=== PATIENT | female | born 1975 | race American Indian/Alaskan Native ===

== ENCOUNTER 2017-03-13 23:01 | Emergency (ER) | payer OTHER ==
--- NOTE | 2017-03-14 00:53 | C.PDOC ---
History Of Present Illness 41 y/o female comes in for detox for heroin. Patient notes she smokes heroin daily. Patient was a outpatient at [facility] and was told to come to [facility]. Denies suicidal ideation, homicidal ideation, or somatic complaints. Time Seen by Provider: 03/14/17 00:31 Chief Complaint (Nursing): Psychiatric Evaluation History Per: Patient History/Exam Limitations: no limitations Onset/Duration Of Symptoms: Days Current Symptoms Are (Timing): Still Present Suicide/Self Injury Attempted (Context): None Modifying Factor(s): Other (Heroin) Severity: Mild Associated Symptoms: denies: Suicidal Thoughts, Suicidal Plan Recent travel outside of the [place]: No Additional History Per: Patient Past Medical History Reviewed: Historical Data, Nursing Documentation, Vital Signs Vital Signs: Last Vital Signs Temp 98.2 F 03/13/17 23:27 Pulse 102 H 03/13/17 23:27 Resp 16 03/13/17 23:27 BP 124/82 03/13/17 23:27 Pulse Ox 99 03/14/17 00:56 - Medical History PMH: Anxiety, Asthma, Bipolar Disorder, Depression, Schizophrenia Family History: States: Unknown Family Hx - Social History Hx Alcohol Use: No Hx Substance Use: Yes - Immunization History Hx Tetanus Toxoid Vaccination: No Hx Influenza Vaccination: No Hx Pneumococcal Vaccination: No Review Of Systems Except As Marked, All Systems Reviewed And Found Negative. Constitutional: Positive for: Other (Detox from heroin) Cardiovascular: Negative for: Chest Pain Respiratory: Negative for: Shortness of Breath Gastrointestinal: Negative for: Abdominal Pain Psych: Negative for: Suicidal ideation, Other (Homicidal ideation) Physical Exam - Physical Exam Appears: Non-toxic, No Acute Distress, Other (Upset, crying) Skin: Warm, Dry Head: Atraumatic, Normacephalic Cardiovascular: Rhythm Regular Respiratory: Normal Breath Sounds, No Rales, No Rhonchi, No Wheezing Gastrointestinal/Abdominal: Soft, No Tenderness Back: Normal Inspection, No CVA Tenderness Extremity: Capillary Refill (<2secs), No Other (No tract herr) Neurological/Psych: Oriented x3, Normal Speech, Normal Cognition ED Course And Treatment O2 Sat by Pulse Oximetry: 99 (RA) Pulse Ox Interpretation: Normal Progress Note: Patient advised no detox beds availableat this time. Spoke with duralumin metalworker and given information about pre-screening. Medical Decision Making Medical Decision Making: Impression: 41 y/o female comes in for detox for heroin. Plans: * Reassess Patient was told there was no beds available for detox. Patient was referred to other resources and advised how to get pre-screened. Disposition - Disposition Disposition: HOME/ ROUTINE Disposition Time: 01:06 Condition: STABLE Instructions: Narcotic Abuse (ED) Forms: [employer] (Estonian) - Clinical Impression Clinical Impression: Opiate abuse, continuous - Scribe Statement The provider has reviewed the documentation as recorded by the Scribe Guanaco sorto All medical record entries made by the Yinkaibe were at my direction and personally dictated by me. I have reviewed the chart and agree that the record accurately reflects my personal performance of the history, physical exam, medical decision making, and the department course for this patient. I have also personally directed, reviewed, and agree with the discharge instructions and disposition.
[2017-03-14 01:34] VITALS: BP 126/80; PULSE 82; RESP 18; TEMP 97.8; O2SAT 100
== END 2017-03-14 01:33 | disposition home or self-care (01) ==
LOC: C.ER 23:01
DX: F11.10 Opioid abuse, uncomplicated (principal)